=== PATIENT | male | born 1990 | race Caucasian/White ===

== ENCOUNTER 2016-11-29 13:57 | Emergency (ER) | payer SELFPAY ==
[2016-11-29 14:09] VITALS: BP 114/65
[2016-11-29 15:31] LABS: ABSOLUTE BASOPHILS # (AUTO) 0.1 10^3/uL (0.0-0.2); ABSOLUTE EOSINOPHILS # (AUTO) 0.2 10^3/uL (0.0-0.6); ABSOLUTE LYMPHOCYTES (AUTO) 1.9 10^3/uL (0.5-4.7); ABSOLUTE MONOCYTES (AUTO) 0.7 10^3/uL (0.1-1.4); ABSOLUTE NEUT (AUTO) 4.5 10^3/uL (1.7-8.2); BASOPHILS % (AUTO) 0.8 % (0-2); EOSINOPHILS % (AUTO) 2.6 % (0-6); HEMOGLOBIN 14.3 g/dL (13.5-17.0); HGB HCT DIFFERENCE 2.9; LYMPHOCYTES % (AUTO) 26.4 % (13-45); MEAN CORPUSCULAR HGB CONC 35.7 g/dL (32.0-36.0); MEAN CORPUSCULAR VOLUME 84 fl (80-97); MONOCYTES % (AUTO) 9.2 % (3-13); RED BLOOD COUNT 4.75 10^6/uL (4.35-5.55); RED CELL DISTRIBUTION WIDTH 12.7 % (11.5-14.0); WHITE BLOOD COUNT 7.4 10^3/uL (4.0-10.5)
[2016-11-29 15:49] LABS: ALANINE AMINOTRANSFERASE 26 U/L (21-72); ALBUMIN 3.9 g/dL (3.5-5.0); ALKALINE PHOSPHATASE 65 U/L (38-126); ANION GAP 10 (5-19); ASPARTATE AMINO TRANSFERASE 20 U/L (17-59); BILIRUBIN,DIRECT 0.3 mg/dL (0.0-0.4); BILIRUBIN,TOTAL 0.5 mg/dL (0.2-1.3); BLOOD UREA NITROGEN 14 mg/dL (7-20); CALCIUM 9.3 mg/dL (8.4-10.2); CARBON DIOXIDE 28 mmol/L (22-30); CHLORIDE 105 mmol/L (98-107); CREATININE RESULT 0.87 mg/dL (0.52-1.25); GLUCOSE 87 mg/dL (75-110); POTASSIUM 4.1 mmol/L (3.6-5.0); SODIUM 142.9 mmol/L (137-145); TOTAL PROTEIN 6.4 g/dL (6.3-8.2)
[2016-11-29 15:52] LABS: ALCOHOL < 10 mg/dL (NONE DETECTED)
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
[2016-11-29 16:21] LABS: APPEARANCE,URINE CLEAR; BILIRUBIN,URINE NEGATIVE (NEGATIVE); GLUCOSE, URINE NEGATIVE (NEGATIVE); KETONES,URINE TRACE mg/dL (NEGATIVE); LEUKOCYTE ESTERASE,URINE NEGATIVE (NEGATIVE); NITRITE,URINE NEGATIVE (NEGATIVE); PROTEIN,URINE NEGATIVE (NEGATIVE); URINE SPECIFIC GRAVITY 1.015
[2016-11-29 16:49] LABS: URINE BARBITURATES SCREEN NEGATIVE; URINE METHADONE SCREEN NEGATIVE; URINE OPIATES LOW UNCONFIRMED POSITIVE; URINE PHENCYCLIDINE SCREEN NEGATIVE
--- NOTE | 2016-11-29 18:29 | EKG REPORT ---
SEVERITY:- NORMAL ECG - SINUS RHYTHM : Confirmed by: Sarbjit cMkoy MD 29-Nov-2016 18:27:55
== END 2016-11-29 16:41 | disposition home or self-care (01) ==
LOC: ER 13:57
DX: F11.10 Opioid abuse, uncomplicated (principal); F13.10 Sedative, hypnotic or anxiolytic abuse, uncomplicated; F12.10 Cannabis abuse, uncomplicated; R45.851 Suicidal ideations; Z88.5 Allergy status to narcotic agent
CPT/HCPCS: 36415; 80053; 80307; 81001; 85025; 93005; 93010; 99285

== ENCOUNTER 2016-11-29 19:31 | Emergency (ER) | payer SELFPAY ==
--- NOTE | 2016-11-29 20:03 | ER Document Report ---
ED Medical Screen (RME) - General Chief Complaint: Suicidal Ideation Stated Complaint: POSSIBLE SUICIDAL THOUGHTS Time Seen by Provider: 11/29/16 20:01 Notes: Patient was discharged approximately 4 hours ago from this emergency department. At that time he had a psychological consultation and laboratories done. No significant laboratory abnormalities were noted. Psychiatry consultation recommended outpatient follow-up. At that time patient was upset and knocked his discharge papers to the ground. Patient returns now stating that he is suicidal. TRAVEL OUTSIDE OF THE [place] IN LAST 30 DAYS: No - Related Data Allergies/Adverse Reactions: acetaminophen [From Vicodin] Allergy (Verified 11/29/16 19:42) hydrocodone bitartrate [From Vicodin] Allergy (Verified 11/29/16 19:42) Past Medical History - Social History Chew tobacco use (# tins/day): No Frequency of alcohol use: None Drug Abuse: Heroin, Marijuana Renal/ Medical History: Denies: Hx Peritoneal Dialysis Musculoskeltal Medical History: Reports Hx Musculoskeletal Deformity, Reports Hx Musculoskeletal Trauma Psychiatric Medical History: Reports: Hx Depression Traumatic Medical History: Reports: Hx Fractures Past Surgical History: Reports: Hx Appendectomy, Hx Orthopedic Surgery - Left ankle, 10 screws, fractured hand - Immunizations Immunizations up to date: No Hx Diphtheria, Pertussis, Tetanus Vaccination: Yes - 2016 Physical Exam - Vital signs Vitals: Temp Pulse Resp BP Pulse Ox 98.5 F 88 18 132/73 H 100 11/29/16 19:43 11/29/16 19:43 11/29/16 19:43 11/29/16 19:43 11/29/16 19:43 Course - Vital Signs Vital signs: Temp Pulse Resp BP Pulse Ox 98.5 F 88 18 132/73 H 100 11/29/16 19:43 11/29/16 19:43 11/29/16 19:43 11/29/16 19:43 11/29/16 19:43
[2016-11-29 20:43] LABS: URINE BARBITURATES SCREEN NEGATIVE; URINE METHADONE SCREEN NEGATIVE; URINE OPIATES LOW UNCONFIRMED POSITIVE; URINE PHENCYCLIDINE SCREEN NEGATIVE
--- NOTE | 2016-11-29 23:30 | ER Document Report ---
ED General - General Chief Complaint: Suicidal Ideation Stated Complaint: POSSIBLE SUICIDAL THOUGHTS Time Seen by Provider: 11/29/16 20:01 Notes: Patient is a 26-year-old male seen in this department earlier today for polysubstance abuse and a desire for rehab as well as passive suicidal ideation who presents again with more specific plans to commit suicide. Patient states that he has no vertigo, nothing left to live for, has hit rock bottom. States that he wants to and has been planning to walk into traffic. States that he feels if he is discharged tonight he will complete suicide. He has a history of prior suicide attempts. Review of prior providers notes does demonstrate the patient has a history of threatening suicide when he feels he needs to go to rehab. He denies any acute medical complaints. Denies any drug use between time of discharge and re-presentation. Nothing improves or worsens his symptoms. He has gone to rehab repeated in the past without success. TRAVEL OUTSIDE OF THE [place] IN LAST 30 DAYS: No - Related Data Allergies/Adverse Reactions: acetaminophen [From Vicodin] Allergy (Verified 11/29/16 19:42) hydrocodone bitartrate [From Vicodin] Allergy (Verified 11/29/16 19:42) Past Medical History - General Information source: Patient - Social History Smoking Status: Former Smoker Chew tobacco use (# tins/day): No Frequency of alcohol use: None Drug Abuse: Heroin, Marijuana Lives with: Alone Family History: Reviewed & Not Pertinent Patient has suicidal ideation: Yes Patient has homicidal ideation: Yes Renal/ Medical History: Denies: Hx Peritoneal Dialysis Musculoskeltal Medical History: Reports Hx Musculoskeletal Deformity, Reports Hx Musculoskeletal Trauma Psychiatric Medical History: Reports: Hx Depression Traumatic Medical History: Reports: Hx Fractures Past Surgical History: Reports: Hx Appendectomy, Hx Orthopedic Surgery - Left ankle, 10 screws, fractured hand - Immunizations Immunizations up to date: No Hx Diphtheria, Pertussis, Tetanus Vaccination: Yes - 2015 Review of Systems - Review of Systems Notes: Constitutional: Negative for fever. HENT: Negative for sore throat. Eyes: Negative for visual changes. Cardiovascular: Negative for chest pain. Respiratory: Negative for shortness of breath. Gastrointestinal: Negative for abdominal pain, vomiting or diarrhea. Genitourinary: Negative for dysuria. Musculoskeletal: Negative for back pain. Skin: Negative for rash. Neurological: Negative for headaches, weakness or numbness. 10 point ROS negative except as marked above and in HPI. Physical Exam - Vital signs Vitals: Temp Pulse Resp BP Pulse Ox 98.5 F 88 18 132/73 H 100 11/29/16 19:43 11/29/16 19:43 11/29/16 19:43 11/29/16 19:43 11/29/16 19:43 Interpretation: Normal Notes: PHYSICAL EXAMINATION: GENERAL: Well-appearing, well-nourished and in no acute distress. HEAD: Atraumatic, normocephalic. EYES: sclera anicteric, conjunctiva are normal. ENT: Moist mucous membranes. NECK: Normal range of motion LUNGS: Normal work of breathing HEART: 2+ radial pulses bilaterally EXTREMITIES: no pitting or edema. No cyanosis. NEUROLOGICAL: No focal neurological deficits. Moves all extremities spontaneously and on command. PSYCH: Normal mood, normal affect. SKIN: Warm, Dry, normal turgor, no rashes or lesions noted. Course - Re-evaluation Re-evalutation: 11/29/16 23:28 Patient presents approximate 5 hours after being discharged after being seen for need for rehab and possible suicidal ideation. Patient states he regrets his behavior at time of discharge, states he wishes to apologize to the person with whom he was speaking. Patient states he is return because he has nowhere else to go and "I go back out there I am going to ". Patient is very clear that he has no desire to live, has lost everything, and feels his only 2 options are to go into an inpatient rehab or commit suicide. States his family is no longer speaking to him due to his actions and he does acknowledge that he has caused significant pain to his family in the past. He does acknowledge that the reason his father's not speaking to him currently as he stole from his store. I have had a long conversation with the patient that his suicidal ideation appears to be passive he is not taking any actions towards actually completing suicide and has had previous evaluations for similar presentations. However, the patient does remain insistent that he does not feel safe for discharge. I have offered that he can remain in the emergency department tonight and again speak to psychiatry in the morning. I have told him that there is no way for me to promise him that he and he can get an inpatient rehab especially because he is not currently insured but that additional resources can be discussed with him as originally planned. He denies any acute medical concerns. I do not see any indication to repeat labs as they were just finished less than 24 hours ago. He denies any acute medical complaints. He is cleared for psychiatric evaluation. - Vital Signs Vital signs: Temp Pulse Resp BP Pulse Ox 98.5 F 88 18 132/73 H 100 11/29/16 19:43 11/29/16 19:43 11/29/16 19:43 11/29/16 19:43 11/29/16 19:43 Discharge - Discharge Clinical Impression: Polysubstance abuse, Suicidal ideation Condition: Fair Disposition: PSYCH HOSP/UNIT
[2016-11-30 07:54] VITALS: BP 128/73
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
== END 2016-11-30 10:27 | disposition home or self-care (01) ==
LOC: ER 19:31
DX: R45.851 Suicidal ideations (principal); F11.10 Opioid abuse, uncomplicated; F12.10 Cannabis abuse, uncomplicated; F13.10 Sedative, hypnotic or anxiolytic abuse, uncomplicated; R45.850 Homicidal ideations; Z88.5 Allergy status to narcotic agent; Z88.6 Allergy status to analgesic agent; Z87.891 Personal history of nicotine dependence
CPT/HCPCS: 80307; 99285